=== PATIENT | male | born 1960 | race African-American/Black ===

== ENCOUNTER 2019-05-07 11:48 | Emergency (ER) | payer OTHER ==
[~2019-05-07] VITALS: Ht 190.5 cm; Wt 100.0 kg
[2019-05-07 13:03] LABS: CLARITY URINE CLEAR (CLEAR); COLOR URINE YELLOW (YELLOW); KETONES URINE NEGATIVE (NEGATIVE); LEUKOCYTE ESTERASE URINE NEGATIVE (NEGATIVE); NITRITE URINE NEGATIVE (NEGATIVE); OCCULT BLOOD URINE NEGATIVE (NEGATIVE); PH URINE 6.5 (4.5-8.0); PROTEIN URINE NEGATIVE (NEGATIVE); SPECIFIC GRAVITY URINE 1.011 (1.005-1.030); UROBILINOGEN URINE 0.2 E.U./dL (0.2-1.0)
[2019-05-07 14:50] VITALS: BP 135/89
== END 2019-05-07 14:51 | disposition home or self-care (01) ==
LOC: ER 11:48
DX: R33.9 Retention of urine, unspecified (principal); R10.30 Lower abdominal pain, unspecified; F17.200 Nicotine dependence, unspecified, uncomplicated; N40.0 Benign prostatic hyperplasia without lower urinary tract symptoms
CPT/HCPCS: 51702; 81003; 99284; Z7610; A4315